=== PATIENT | female | born 1950 | race Caucasian/White ===

== ENCOUNTER 2016-12-16 08:19 | Outpatient (CLI) | payer BC | END 2016-12-16 08:20 | disposition home or self-care (01) | DX: Z12.31 Encounter for screening mammogram for malignant neoplasm of breast (principal) ==

== ENCOUNTER 2017-01-24 11:33 | Outpatient (CLI) | payer BC | END 2017-01-24 11:34 | disposition home or self-care (01) | DX: E89.0 Postprocedural hypothyroidism (principal) ==

== ENCOUNTER 2017-10-13 06:52 | Day surgery (SDC) | payer MEDICARE, OTHER ==
[2017-10-13] MEDS ORDERED: LACTATED RINGERS 1,000 ML IV ONE ×2 (07:02→08:21)
[2017-10-13] MEDS ORDERED: fentaNYL 100 MCG/2 ML VIAL IVP ONE (07:59)
[2017-10-13] MEDS ORDERED: MIDAZOLAM 2 MG/2 ML VIAL IVP ONE (07:59)
[2017-10-13 08:45] VITALS: BP 102/61
== END 2017-10-13 06:53 | disposition home or self-care (01) ==
LOC: SDS 06:52
PROVIDERS: ATTEND Surgery
PROC: 0DJD8ZZ Inspection of Lower Intestinal Tract, Via Natural or Artificial Opening Endoscopic (ICD-10-PCS; principal; 2017-10-13 08:00)
DX: Z12.11 Encounter for screening for malignant neoplasm of colon (principal); K64.8 Other hemorrhoids; E03.9 Hypothyroidism, unspecified; E78.5 Hyperlipidemia, unspecified
CPT/HCPCS: G0121; J7120

== ENCOUNTER 2017-12-27 08:27 | Outpatient (CLI) | payer MEDICARE, OTHER ==
--- NOTE | 2017-12-28 17:36 | Mammography Report ---
DIGITAL SCREENING MAMMOGRAM: 12/27/2017 CLINICAL INDICATION: A 67-year-old for screening. COMPARISON: 12/2016, 01/2015, 01/2014, 12/2012, 12/2011, 12/2009. TECHNIQUE: Routine CC and MLO projections as well as bilateral laterally exaggerated craniocaudal views were obtained of the breasts. FINDINGS: The breasts demonstrate scattered fibroglandular densities bilaterally. Coarse, typically benign calcifications are present. No suspicious masses, clustered microcalcifications, or regions of architectural distortion are identified. IMPRESSION: BENIGN FINDINGS. RECOMMENDATION: Routine annual screening unless otherwise clinically indicated. BIRADS CATEGORY 2 - BENIGN FINDINGS. STANDARD QUALIFYING STATEMENTS: 1. This examination was reviewed with the aid of Computer-Aided Detection (CAD). 2. A negative or benign imaging report should not delay biopsy if clinically suspicious findings are present. Consider surgical consultation if warranted. More than 5% of cancers are not identified by imaging. 3. Dense breasts may obscure an underlying neoplasm. TD: 12/28/2017 17:35
== END 2017-12-27 08:28 | disposition home or self-care (01) ==
LOC: DI 08:27
PROVIDERS: ATTEND Internal Medicine
DX: Z12.31 Encounter for screening mammogram for malignant neoplasm of breast (principal)
CPT/HCPCS: 77067

== ENCOUNTER 2019-02-06 08:13 | Outpatient (CLI) | payer MEDICARE, OTHER ==
--- NOTE | 2019-02-06 15:13 | Mammography Report ---
Reason: SCREENING MAMMO Procedure Date: 02/06/2019 Accession Number: [id number] / [id number] Procedure: MELANIE - Screening Mammo w/Igor CPT Code: FULL RESULT: EXAM: Screening Mammo w/Igor DATE: 02/06/2019 8:47 AM CLINICAL HISTORY: Routine screening TECHNIQUE: (B) - Bilateral CC and MLO views were obtained. COMPARISON: 12/27/2017, 12/16/2016, 01/29/2015, 01/24/2014. PARENCHYMAL PATTERN: (A) - The breasts demonstrate scattered fibroglandular densities bilaterally. FINDINGS: No significant interval change. There are no suspicious masses, calcifications, or areas of distortion. IMPRESSION: Negative examination. BI-RADS category 1. RECOMMENDATION: (ANNUAL) - Recommend routine annual screening mammography. BI-RADS CATEGORY: (1) - Negative. STANDARD QUALIFYING STATEMENTS: 1. This examination was not reviewed with the aid of Computer-Aided Detection (CAD). 2. A negative or benign imaging report should not preclude biopsy if clinically suspicious findings are present. 3. Dense breasts may obscure an underlying neoplasm. 4. This examination was reviewed with the aid of 3D breast imaging (tomosynthesis).
== END 2019-02-06 08:14 | disposition home or self-care (01) ==
LOC: DI 08:13
DX: Z12.31 Encounter for screening mammogram for malignant neoplasm of breast (principal)
CPT/HCPCS: 77063; 77067

== ENCOUNTER 2020-03-04 14:51 | Outpatient (CLI) | payer MEDICARE, OTHER ==
--- NOTE | 2020-03-05 10:54 | Mammography Report ---
BILATERAL DIGITAL SCREENING MAMMOGRAM 3D/2D: 03/04/2020 CLINICAL: Routine screening. Comparison is made to exams dated: 12/27/2017 mammogram, 12/16/2016 mammogram, and 01/29/2015 mammogram - [facility]. There are scattered fibroglandular elements in both breasts. No significant masses, calcifications, or other findings are seen in either breast. There has been no significant interval change. IMPRESSION: NEGATIVE There is no mammographic evidence of malignancy. A 1 year screening mammogram is recommended. This exam was interpreted at Station ID: [id number]. NOTE: For mammograms, a report in lay terms will be sent to the patient. Approximately 15% of breast malignancies will not be visualized mammographically. In the management of a palpable breast mass, a negative mammogram must not discourage biopsy of a clinically suspicious lesion. Electronically Signed By: Javier Cabello M.D. slc/penrad:03/04/2020 17:45:15 ACR BI-RADS Category 1: Negative 3341F PARENCHYMAL PATTERN: (A) - The breast(s) demonstrate(s) scattered fibroglandular densities. BI-RADS CATEGORY: (1) - 1 RECOMMENDATION: (ANNUAL) - Recommend routine annual screening mammography. [id number] 1 year screening LATERALITY: (B)
== END 2020-03-04 14:52 | disposition home or self-care (01) ==
LOC: DI 14:51
PROVIDERS: ATTEND Internal Medicine
DX: Z12.31 Encounter for screening mammogram for malignant neoplasm of breast (principal)
CPT/HCPCS: 77063; 77067

== ENCOUNTER 2020-06-16 09:43 | Outpatient (CLI) | payer MEDICARE, OTHER | END 2020-06-16 09:44 | disposition home or self-care (01) | LOC: LAB 09:43 | PROVIDERS: ATTEND Internal Medicine | DX: B34.9 Viral infection, unspecified (principal); Z20.828 Contact with and (suspected) exposure to other viral communicable diseases ==

== ENCOUNTER 2021-05-06 13:09 | Outpatient (CLI) | payer MEDICARE, OTHER ==
--- NOTE | 2021-05-06 16:31 | XRAY Report ---
PROCEDURE: Knee 3 View RT INDICATIONS: RT PATELLA INJURY TECHNIQUE: 3 views of the right knee(s) were acquired. COMPARISON: None. FINDINGS: Bones: Minimally displaced, comminuted fracture of the lower pole of the patella. No lateral patellar subluxation. No suspicious bony lesions. Soft tissues: Prominent prepatellar subcutaneous swelling. No radiodense foreign body visible. No tesfaye int effusion. No suspicious soft tissue calcifications. IMPRESSION: 1. Minimally displaced, comminuted inferior pole patellar fracture with overlying soft tissue swellin g. Reviewed by: Marlyn Chris MD on 05/06/2021 4:29 PM PDT Approved by: Marlyn Chris MD on 05/06/2021 4:29 PM PDT Station ID: [id number]
== END 2021-05-06 13:10 | disposition home or self-care (01) ==
LOC: DI 13:09
PROVIDERS: ATTEND Internal Medicine
DX: S82.041A Displaced comminuted fracture of right patella, initial encounter for closed fracture (principal)

== ENCOUNTER 2021-09-25 13:00 | Outpatient (CLI) | payer MEDICARE, OTHER ==
--- NOTE | 2021-09-28 09:00 | Mammography Report ---
BILATERAL DIGITAL SCREENING MAMMOGRAM 3D/2D: 09/25/2021 CLINICAL: Routine screening. Comparison is made to exams dated: 03/04/2020 mammogram, 02/06/2019 mammogram, 12/27/2017 mammogram, 12/16/2016 mammogram, and 01/29/2015 mammogram - [facility]. There are scattered fibrog landular elements in both breasts. There are benign calcifications in both breasts. No significant masses, calcifications, or other findings are seen in either breast. There has been no significant interval change. IMPRESSION: BENIGN There is no mammographic evidence of malignancy. A 1 year screening mammogram is recommended. This exam was interpreted at Station ID: [id number]. NOTE: For mammograms, a report in lay terms will be sent to the patient. Approximately 15% of breast malignancies will not be visualized mammographically. In the management of a palpable breast mass, a negative mammogram must not discourage biopsy of a clinically suspicious lesion. Electronically Signed By: Javier wood/gage:09/25/2021 14:58:53 ACR BI-RADS Category 2: Benign Finding(s) 3342F PARENCHYMAL PATTERN: (A) - The breast(s) demonstrate(s) scattered fibroglandular densities. BI-RADS CATEGORY: (2) - 2 RECOMMENDATION: (ANNUAL) - Recommend routine annual screening mammography. [id number] 1 year screening LATERALITY: (B)
== END 2021-09-25 13:01 | disposition home or self-care (01) ==
LOC: DI 13:00
DX: Z12.31 Encounter for screening mammogram for malignant neoplasm of breast (principal)

== ENCOUNTER 2021-12-03 08:00 | Outpatient (CLI) | payer MEDICARE, OTHER ==
[2021-12-03 15:39] LABS: BASOPHILS % (AUTO) 0.6 %; EOSINOPHILS # (AUTO) 0.1 10^3/uL (0.0-0.7); EOSINOPHILS % (AUTO) 1.4 %; HGB - HEMOGLOBIN 13.9 g/dL (12.0-16.0); LYMPHOCYTES # (AUTO) 2.4 10^3/uL (1.5-3.5); LYMPHOCYTES % (AUTO) 38.1 %; MEAN CORPUSCULAR HEMOGLOBIN 31.2 pg (27.0-31.0); MEAN CORPUSCULAR HGB CONC 33.9 g/dL (32.0-36.0); MEAN CORPUSCULAR VOLUME 92.1 fL (81.0-99.0); MEAN PLATELET VOLUME 11.3 fL (7.9-10.8); MONOCYTES # (AUTO) 0.4 10^3/uL (0.0-1.0); MONOCYTES % (AUTO) 6.5 %; NEUTROPHILS # (AUTO) 3.4 10^3/uL (1.5-6.6); NEUTROPHILS % (AUTO) 53.2 %; PLT - PLATELET COUNT 318 10^3/uL (130-450); RED BLOOD COUNT 4.45 10^6/uL (4.20-5.40); RED CELL DISTRIBUTION WIDTH 11.9 % (12.0-15.0); WHITE BLOOD COUNT 6.3 x10^3/uL (4.8-10.8)
[2021-12-03 16:01] LABS: ALBUMIN 4.5 g/dL (3.2-5.5); ALBUMIN/GLOBULIN RATIO 1.5 (1.0-2.2); ALKALINE PHOSPHATASE 68 IU/L (42-121); ALT ALANINE AMINOTRANSFERASE 19 IU/L (10-60); AST ASPARTATE AMINOTRANSFERASE 27 IU/L (10-42); BILIRUBIN,TOTAL 0.9 mg/dL (0.2-1.0); BUN - BLOOD UREA NITROGEN 14 mg/dL (6-20); CALCIUM 9.4 mg/dL (8.5-10.3); CARBON DIOXIDE - CO2 25 mmol/L (21-32); CHLORIDE 101 mmol/L (101-111); CHOL/HDL RATIO 3.7 (<4.4); CHOLESTEROL 246 mg/dL; CREATININE 0.6 mg/dL (0.4-1.0); GFR - MDRD 99 (>89); GLUCOSE 106 mg/dL (70-100); HDL CHOLESTEROL 67 mg/dL; LDL CHOLESTEROL,CALCULATED 154 mg/dL; LDL/HDL RATIO 2.3 (<4.4); POTASSIUM 3.8 mmol/L (3.5-5.0); SODIUM 139 mmol/L (135-145); TOTAL PROTEIN 7.6 g/dL (6.7-8.2); TRIGLYCERIDES 127 mg/dL; VLDL CHOLESTEROL 25 mg/dL
[2021-12-03 17:12] LABS: ESTIMATED AVERAGE GLUCOSE 131 mg/dL (70-100); HEMOGLOBIN A1c% 6.2 % (4.27-6.07)
== END 2021-12-03 23:59 | disposition home or self-care (01) ==
LOC: LAB.R 08:00
PROVIDERS: ATTEND Internal Medicine
DX: Z00.00 Encounter for general adult medical examination without abnormal findings (principal); E55.9 Vitamin D deficiency, unspecified; R73.9 Hyperglycemia, unspecified; E78.5 Hyperlipidemia, unspecified; E03.9 Hypothyroidism, unspecified; M81.0 Age-related osteoporosis without current pathological fracture; M25.561 Pain in right knee; Z13.6 Encounter for screening for cardiovascular disorders; Z79.899 Other long term (current) drug therapy
CPT/HCPCS: 80053; 80061; 82306; 83036; 83721; 84443; 85025

== ENCOUNTER 2021-12-23 10:46 | Outpatient (CLI) | payer MEDICARE, OTHER ==
--- NOTE | 2021-12-23 11:29 | DEXA Report ---
PROCEDURE: Dexa Spine and/or Hip INDICATIONS: OSTEOPOROSIS TECHNIQUE: Dual energy x-ray absorptiometry (DXA) was performed on a Bioheart System. Regions measur ed are the AP Spine, femoral neck, and if needed forearm. COMPARISON: January 29, 2015. FINDINGS: Lumbar Spine: Bone Mineral Density 0.768 g/cm/cm,T score -3.4, osteoporosis Left Hip: Bone Mineral Density 0.616 g/cm/cm,T score -3.1, osteoporosis Left Femoral Neck: Bone Mineral Density 0.638 g/cm/cm, T score -2.9, osteoporosis (T score greater or equal to -1.0: NORMAL) (T score from -1.1 to -2.4: OSTEOPENIA) (T score less than or equal to -2.5 to: OSTEOPOROSIS) Impression: 1. Bone mineral density as detailed above. Patients with diagnosis of osteoporosis or osteopenia should have regular bone mineral density assess ment. For those eligible for Medicare, routine testing is allowed once every 2 years. Testing frequ ency can be increased for patients who have rapidly progressing disease or for those who are receivin g medical therapy to restore bone mass. Reviewed by: Ezekiel Bello MD on 12/23/2021 11:28 AM PDT Approved by: Ezekiel Bello MD on 12/23/2021 11:28 AM PDT Station ID: [id number]
== END 2021-12-23 10:47 | disposition home or self-care (01) ==
LOC: DI 10:46
PROVIDERS: ATTEND Internal Medicine
DX: M81.0 Age-related osteoporosis without current pathological fracture (principal)

== ENCOUNTER 2023-01-19 08:22 | Outpatient (CLI) | payer MEDICARE, OTHER ==
--- NOTE | 2023-01-19 10:55 | Mammography Report ---
BILATERAL DIGITAL SCREENING MAMMOGRAM 3D/2D: 01/19/2023 CLINICAL: Routine screening. Comparison is made to exams dated: 09/25/2021 mammogram, 03/04/2020 mammogram, 02/06/2019 mammogram, mammogram, 12/16/2016 mammogram, and 01/29/2015 mammogram - [facility]. There are scattered areas of fibroglandular density in both breasts (category b / 25%-50% glandular t issue). There is a possible new irregular high density asymmetry in the right breast middle depth lateral reg ion seen on the craniocaudal view only. No other significant masses, calcifications, or other findings are seen in either breast. IMPRESSION: INCOMPLETE: NEEDS ADDITIONAL IMAGING EVALUATION The possible new irregular high density asymmetry in the right breast is indeterminate. Additional v iews with possible ultrasound are recommended. Based on the Tyrer Cuzick model (a risk assessment model) the patients lifetime risk is 4.6% and her 10 year risk is 2.9%. According to the ACR, ACS, and NCCN guidelines, an annual breast MRI exam josefina g with mammogram is recommended if the patients lifetime risk is 20% or greater. This exam was interpreted at Station ID: [id number]. NOTE: For mammograms, a report in lay terms will be sent to the patient. Approximately 15% of breast malignancies will not be visualized mammographically. In the management of a palpable breast mass, a negative mammogram must not discourage biopsy of a clinically suspicious lesion. Electronically Signed By: Junito Mello M.D. aty/:01/19/2023 10:03:03 ACR BI-RADS Category 0: Incomplete 3340F PARENCHYMAL PATTERN: (A) - The breast(s) demonstrate(s) scattered fibroglandular densities. BI-RADS CATEGORY: (0) - 0 Mammo and [place] [id number] Immediate follow-up LATERALITY: (R)
== END 2023-01-19 08:23 | disposition home or self-care (01) ==
LOC: DI 08:22
PROVIDERS: ATTEND Internal Medicine
DX: Z12.31 Encounter for screening mammogram for malignant neoplasm of breast (principal); R92.8 Other abnormal and inconclusive findings on diagnostic imaging of breast

== ENCOUNTER 2023-02-10 13:33 | Outpatient (CLI) | payer MEDICARE, OTHER ==
--- NOTE | 2023-02-10 14:05 | XRAY Report ---
PROCEDURE: Hand 3 View LT INDICATIONS: LEFT HAND PAIN TECHNIQUE: 3 views of the hand(s) acquired. COMPARISON: None. FINDINGS: Bones: Oblique fracture through the fifth metacarpal shaft. Soft tissues: No suspicious soft tissue calcifications or masses. IMPRESSION: Oblique fracture through the fifth metacarpal shaft. A message was left with the ordering provider at time of dictation. Reviewed by: Surinder Bardales on 02/10/2023 2:04 PM PDT Approved by: Surinder Bardales on 02/10/2023 2:04 PM PDT Station ID: [id number]
== END 2023-02-10 13:34 | disposition home or self-care (01) ==
LOC: DI 13:33
PROVIDERS: ATTEND Internal Medicine
DX: S62.327A Displaced fracture of shaft of fifth metacarpal bone, left hand, initial encounter for closed fracture (principal)

== ENCOUNTER 2023-02-15 08:00 | Outpatient (CLI) | payer MEDICARE, OTHER ==
--- NOTE | 2023-02-15 11:03 | XRAY Report ---
PROCEDURE: Hand 3 View LT INDICATIONS: LEFT 5TH MC FRACTURE TECHNIQUE: 3 views of the hand(s) acquired. COMPARISON: 02/10/2023 FINDINGS: Bones: Unchanged mildly displaced oblique shaft fracture fifth metacarpal with overriding and foresh ortening. Advanced degenerative arthritis at the base of the thumb. Diffuse osteopenia. Soft tissues: No suspicious soft tissue calcifications or masses. IMPRESSION: 1. Diffuse underlying osteopenia. 2. No significant change in appearance of the metacarpal fracture. 3. Advanced degenerative arthritis involving the first carpometacarpal joint. Reviewed by: Tom Feliz MD on 02/15/2023 11:02 AM PDT Approved by: Tom Feliz MD on 02/15/2023 11:02 AM PDT Station ID: [id number]
== END 2023-02-15 23:59 | disposition home or self-care (01) ==
LOC: DI.WOS 08:00
PROVIDERS: ATTEND Orthopaedic Surgery
DX: S62.327A Displaced fracture of shaft of fifth metacarpal bone, left hand, initial encounter for closed fracture (principal); M18.12 Unilateral primary osteoarthritis of first carpometacarpal joint, left hand; M85.842 Other specified disorders of bone density and structure, left hand

== ENCOUNTER 2023-02-23 09:10 | Outpatient (CLI) | payer MEDICARE, OTHER ==
--- NOTE | 2023-02-24 12:20 | Mammography Report ---
UNILATERAL RIGHT DIGITAL DIAGNOSTIC MAMMOGRAM 3D/2D WITH SPOT COMPRESSION: 02/23/2023 CLINICAL: Patient returns today to evaluate an asymmetry in the right breast. Comparison is made to exams dated: 01/19/2023 mammogram, 09/25/2021 mammogram, and 03/04/2020 mammogram - [facility]. There are scattered areas of fibroglandular density in the right breast (category b / 25%-50% glandul ar tissue). There is a 0.6 cm irregular equal density focal asymmetry with a circumscribed margin in the right br east at 7 o'clock middle depth. This is seen in additional views. No other significant masses or calcifications are seen in the breast. IMPRESSION: INCOMPLETE: NEEDS ADDITIONAL IMAGING EVALUATION The 0.6 cm irregular equal density focal asymmetry in the right breast is indeterminate. An ultrasou nd is recommended. Based on the Tyrer Cuzick model (a risk assessment model) the patients lifetime risk is 4.6% and her 10 year risk is 2.9%. According to the ACR, ACS, and NCCN guidelines, an annual breast MRI exam jsoefina g with mammogram is recommended if the patients lifetime risk is 20% or greater. This exam was interpreted at Station ID: [id number]. NOTE: For mammograms, a report in lay terms will be sent to the patient. Approximately 15% of breast malignancies will not be visualized mammographically. In the management of a palpable breast mass, a negative mammogram must not discourage biopsy of a clinically suspicious lesion. Electronically Signed By: Bernardo Carrillo M.D. ar/penrad:02/23/2023 12:24:34 ACR BI-RADS Category 0: Incomplete 3340F PARENCHYMAL PATTERN: (A) - The breast(s) demonstrate(s) scattered fibroglandular densities. BI-RADS CATEGORY: (0) - 0 Ultrasound [id number] Immediate follow-up LATERALITY: (R)
--- NOTE | 2023-02-24 12:20 | Ultrasound Report ---
LIMITED ULTRASOUND OF RIGHT BREAST: 02/23/2023 CLINICAL: Patient returns today to evaluate a focal asymmetry in the right breast. Comparison is made to exams dated: 02/23/2023 mammogram, 01/19/2023 mammogram, 09/25/2021 mammogram, an d 03/04/2020 mammogram - [facility]. Color flow ultrasound of the right breast 7 o'clock region was performed. Maroi scale images of the r eal-time examination were reviewed. There is a benign 0.4 cm x 0.3 cm x 0.2 cm oval cyst with a smooth internal wall in the right breast at 7 o'clock posterior depth 3 cm from the nipple. This oval cyst is anechoic with posterior acousti c enhancement. This correlates with mammography findings. IMPRESSION: BENIGN There is no sonographic evidence of malignancy. The 0.4 cm x 0.3 cm x 0.2 cm oval cyst in the right breast is benign. Return to annual mammogram screening schedule is recommended. This exam was interpreted at Station ID: [id number]. Electronically Signed By: Bernardo quesada/gage:02/23/2023 12:26:13 Ultrasound BI-RADS: 2 Benign BI-RADS CATEGORY: (2) - 2 Mammogram [id number] return to screening LATERALITY: (B)
== END 2023-02-23 09:11 | disposition home or self-care (01) ==
LOC: DI 09:10
PROVIDERS: ATTEND Internal Medicine
DX: N60.01 Solitary cyst of right breast (principal)

== ENCOUNTER 2023-03-14 10:13 | Outpatient (CLI) | payer MEDICARE, OTHER ==
--- NOTE | 2023-03-14 16:09 | XRAY Report ---
PROCEDURE: Finger(s) LT INDICATIONS: LEFT 5TH MC FX TECHNIQUE: AP hand, 2 views of the small finger(s) acquired. COMPARISON: None. FINDINGS: Bones: Interval progress in healing of a shaft fracture of the fifth metacarpal with decreased fract ure lucency and callus. Soft tissues: No suspicious soft tissue calcifications or masses. IMPRESSION: Expected interval progress in healing. Reviewed by: Tom Feliz MD on 03/14/2023 4:08 PM PDT Approved by: Tom Feliz MD on 03/14/2023 4:08 PM PDT Station ID: [id number]
== END 2023-03-14 23:59 | disposition home or self-care (01) ==
LOC: DI.WOS 10:13
PROVIDERS: ATTEND Physician Assistant Surgical
DX: S62.327D Displaced fracture of shaft of fifth metacarpal bone, left hand, subsequent encounter for fracture with routine healing (principal)

== ENCOUNTER 2023-05-26 08:00 | Outpatient (CLI) | payer MEDICARE, OTHER ==
--- NOTE | 2023-05-26 14:04 | XRAY Report ---
PROCEDURE: Hand 3 View LT INDICATIONS: LEFT HAND FRACTURE TECHNIQUE: 3 views of the hand(s) acquired. COMPARISON: 03/29/2023 FINDINGS: Bones: Redemonstrated oblique fracture of the fifth metacarpal, similar in alignment to before. Frac ture plane remains visible. No substantial bridging bony callus identified. First CMC joint degenerat dev changes present as before. Soft tissues: No suspicious soft tissue calcifications . IMPRESSION: Similar alignment of the fifth metacarpal fracture. Reviewed by: Bernardo Chaudhari MD on 05/26/2023 2:03 PM PDT Approved by: Bernardo Chaudhari MD on 05/26/2023 2:03 PM PDT Station ID: [id number]
== END 2023-05-26 23:59 | disposition home or self-care (01) ==
LOC: DI.WOS 08:00
PROVIDERS: ATTEND Physician Assistant Surgical
DX: S62.327D Displaced fracture of shaft of fifth metacarpal bone, left hand, subsequent encounter for fracture with routine healing (principal)

== ENCOUNTER 2024-03-29 09:16 | Outpatient (CLI) | payer MEDICARE, OTHER ==
--- NOTE | 2024-03-30 09:26 | Mammography Report ---
BILATERAL DIGITAL SCREENING MAMMOGRAM 3D/2D WITH EXAGGERATED CC: 03/29/2024 CLINICAL: Routine screening. Comparison is made to exams dated: 02/23/2023 mammogram, 01/19/2023 mammogram, 09/25/2021 mammogram, mammogram, 02/06/2019 mammogram, and 12/27/2017 mammogram - [facility]. There are scattered areas of fibroglandular density in both breasts (category b / 25%-50% glandular t issue). No significant masses, calcifications, or other findings are seen in either breast. There has been no significant interval change. IMPRESSION: NEGATIVE There is no mammographic evidence of malignancy. A 1 year screening mammogram is recommended. Based on the Tyrer Cuzick model (a risk assessment model) the patient's lifetime risk is 4.1% and her 10 year risk is 3.1%. According to the ACR, ACS, and NCCN guidelines, an annual breast MRI exam josefina g with mammogram is recommended if the patient's lifetime risk is 20% or greater. This exam was interpreted at Station ID: [id number]. NOTE: For mammograms, a report in lay terms will be sent to the patient. Approximately 15% of breast malignancies will not be visualized mammographically. In the management of a palpable breast mass, a negative mammogram must not discourage biopsy of a clinically suspicious lesion. Electronically Signed By: Feroz pan/gage:03/29/2024 10:33:39 letter sent: No_Letter ACR BI-RADS Category 1: Negative 3341F PARENCHYMAL PATTERN: (A) - The breast(s) demonstrate(s) scattered fibroglandular densities. BI-RADS CATEGORY: (1) - 1 RECOMMENDATION: (ANNUAL) - Recommend routine annual screening mammography. [id number] 1 year screening LATERALITY: (B)
== END 2024-03-29 09:17 | disposition home or self-care (01) ==
LOC: DI 09:16
PROVIDERS: ATTEND Internal Medicine
DX: Z12.31 Encounter for screening mammogram for malignant neoplasm of breast (principal); R92.323 Mammographic fibroglandular density, bilateral breasts